=== PATIENT | female | born 1985 | race Caucasian/White ===

== ENCOUNTER 2016-05-25 05:55 | Day surgery (SDC) | payer OTHER ==
[2016-05-18 08:47] LABS: APPEARANCE,URINE CLEAR; BILIRUBIN,URINE NEGATIVE (NEGATIVE); GLUCOSE, URINE NEGATIVE (NEGATIVE); KETONES,URINE NEGATIVE (NEGATIVE); LEUKOCYTE ESTERASE,URINE NEGATIVE (NEGATIVE); NITRITE,URINE NEGATIVE (NEGATIVE); PROTEIN,URINE NEGATIVE (NEGATIVE); URINE SPECIFIC GRAVITY 1.003; UROBILINOGEN,URINE NEGATIVE mg/dL (<2.0)
[2016-05-18 09:15] LABS: ABSOLUTE BASOPHILS # (AUTO) 0.1 10^3/uL (0.0-0.2); ABSOLUTE EOSINOPHILS # (AUTO) 0.1 10^3/uL (0.0-0.6); ABSOLUTE LYMPHOCYTES (AUTO) 1.4 10^3/uL (0.5-4.7); ABSOLUTE MONOCYTES (AUTO) 0.5 10^3/uL (0.1-1.4); ABSOLUTE NEUT (AUTO) 3.2 10^3/uL (1.7-8.2); BASOPHILS % (AUTO) 1.2 % (0-2); EOSINOPHILS % (AUTO) 1.2 % (0-6); HEMATOCRIT 42.8 % (36.0-47.0); HEMOGLOBIN 14.6 g/dL (12.0-15.5); LYMPHOCYTES % (AUTO) 26.3 % (13-45); MEAN CORPUSCULAR HEMOGLOBIN 29.1 pg (27.0-33.4); MEAN CORPUSCULAR HGB CONC 34.2 g/dL (32.0-36.0); MEAN CORPUSCULAR VOLUME 85 fl (80-97); MONOCYTES % (AUTO) 9.4 % (3-13); RED BLOOD COUNT 5.02 10^6/uL (3.72-5.28); RED CELL DISTRIBUTION WIDTH 13.5 % (11.5-14.0); SEGMENTED NEUTROPHILS % (AUTO) 61.9 % (42-78); WHITE BLOOD COUNT 5.2 10^3/uL (4.0-10.5)
[2016-05-18 09:39] LABS: ANION GAP 15 (5-19); BLOOD UREA NITROGEN 11 mg/dL (7-20); CALCIUM 9.9 mg/dL (8.4-10.2); CARBON DIOXIDE 22 mmol/L (22-30); CHLORIDE 106 mmol/L (98-107); CREATININE RESULT 0.72 mg/dL (0.52-1.25); GLUCOSE 93 mg/dL (75-110); POTASSIUM 4.2 mmol/L (3.6-5.0); SODIUM 142.9 mmol/L (137-145)
--- NOTE | 2016-05-18 10:44 | EKG REPORT ---
SEVERITY:- NORMAL ECG - SINUS RHYTHM : Confirmed by: Francisco J Lua MD 18-May-2016 10:43:32
[~2016-05-25 05:55] MED LIST: CEFAZOLIN 2 GM/D5W RTU 2 GM/50 ML RTUPB IV PRN; LACTATED RINGERS 1000 ML IV PRN; LIDOCAINE 0.5% INJ-PF (5 MG/ML) 50 ML SDV SUBCUT PRN
[2016-05-25] MEDS ORDERED: MIDAZOLAM 2 MG/2 ML INJ ONE (07:12)
[2016-05-25] MEDS ORDERED: EPHEDRINE SULFATE INJ 50 MG/1 ML AMPULE ONE (07:12)
[2016-05-25] MEDS ORDERED: FENTANYL CITRATE INJ/PF 250 MCG/5 ML AMPULE ONE (07:12)
[2016-05-25] MEDS ORDERED: ACETAMINOPHEN 100 ML IV ONE (07:13)
[2016-05-25] MEDS ORDERED: MORPHINE SULFATE 10 MG/ML INJ ONE (07:13)
[2016-05-25] MEDS ORDERED: PROPOFOL INJ 200 MG/20 ML VIAL IV ONE (07:13)
[2016-05-25] MEDS ORDERED: DEXMEDETOMIDINE INJ 80 MCG/20 ML VIAL IV ONE (07:13)
[2016-05-25] MEDS ORDERED: FAMOTIDINE INJ/PF 20 MG/2 ML SDV IV ONE ×2 (07:27→08:00)
[2016-05-25] MEDS ORDERED: IBUPROFEN INJ 800 MG/8 ML VIAL IV ONE (07:33)
[2016-05-25] MEDS ORDERED: BUPIVACAINE HCL 0.5 % INJ/PF 30 ML SDV ONE (07:57)
[2016-05-25] MEDS ORDERED: HYDROMORPHONE HCL INJ/PF 2 MG/ML AMPULE ONE (07:59)
[2016-05-25] MEDS ORDERED: SCOPOLAMINE HYDROBROMIDE 1.5 MG PATCH.TD72 TD ONE (08:00)
[2016-05-25] MEDS ORDERED: CEFAZOLIN INJ 1 GM VIAL ONE (09:32)
--- NOTE | 2016-05-25 11:15 | Operative Report ---
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 She underwent distraction bridge plating. After the fracture healed however she had significant radial deviation malunion. She followed up with me in the office at which point we discussed treatment options including observation versus operative intervention which included osteotomy radius malunion with internal fixation. Risks and benefits were explained patient verbalized understanding and consented for the procedure. Procedure In Detail: Patient was seen and evaluated in the preoperative holding area. The LEFT upper extremity was initialized and marked. Patient received 2g of Ancef IV for bacterial prophylaxis. Patient was taken back to the operative room where transferred to the operative table and placed under general anesthesia. Once they were adequately anesthetized a nonsterile tourniquet was placed on the upper extremity. A surgical team debriefing was performed ensuring all instrumentation was available, the surgical procedure was discussed with possible concerns reviewed. The upper extremity was prepped with chlorhexidine and alcohol and draped in a sterile fashion. A timeout was done identifying correct patient, procedure and extremity everyone in attendance agree with this and verbalized no concerns. The extremity was exsanguinated the tourniquet was inflated to 250 mmHg. Patient's previous dorsal incision was utilized. Blunt dissection was performed or significant scarring to the underlying extensor retinaculum. Superficial radial nerve was identified and retracted with the radial skin flap. There was evidence of scarring along the ECRL/ECRB, EPL and EDC. Thus a tenolysis was performed of the extensor tendons. I was able to achieve full passive flexion and extension of the index through the small finger. I then elevated the fourth dorsal compartment to expose the distal radius. The second dorsal compartment was then elevated in a radial direction. Under C-arm fluoroscopy I confirmed the appropriate angle of correction that would be required for my osteotomy and correlated this with my preoperative planning. Once this was determined I used a Acumed narrow dorsal distal radius plate which was pinned into position parallel with the radial articular surface. C- arm fluoroscopy was then obtained which confirmed appropriate placement of my plate. The K wires remained in the plate was removed. The osteotome was used to template my osteotomy site and confirmed with C-arm fluoroscopy once again. I then completed the dorsal osteotomy with a sagittal saw but not extending through the volar cortex and this was completed with an osteotome. During used the oscillating saw saline was utilized to avoid osseous necrosis. I then used the distraction device to pin proximally distally and proximally to the osteotomy obtaining distraction of the osteotomy the appropriate degrees of correction. The plate was then once again slid over the K wires and C-arm fluoroscopy is utilized to confirm appropriate placement of my plate and correction of the radius malunion. Once I confirmed this the plate was secured distally first with a bicortical screw firmly bringing the plate down to bone. I then filled the remaining screws with locking screws and drilled to but not through the far cortices. The previous cortex screw was then switched for the appropriate size locking screw. I then turned my attention to the proximal aspect of the plate. It was secured in the oblong hole with a bicortical screw and fixated additionally proximally with a second bicortical screw. Finally the distal most screw in the proximal fragment was secured with a locking screw. K wires distraction device was removed C-arm fluoroscopy was obtained demonstrating baptism of my radial height, radial inclination and neutral volar tilt. There was -2 ulnar variance and thus I did not feel a ulnar shortening osteotomy was required. Inspection of the DRUJ demonstrated mild bony overgrowth which was resected. Direct visualization of the distal radial ulnar joint demonstrated good cartilage of the ulnar head in the radius there is no evidence of crepitation. I further resected the anterior capsule to obtain full passive pronation and supination. The anterior interosseous nerve was also identified at the interosseous space and 1 cm of the nerve was resected. Within the floor of the fourth dorsal compartment remanence of the posterior interosseous nerve was also identified and a 1 cm segment excised with bipolar cautery. The wound was then copiously irrigated with normal saline. On the back table the OsteoSet bone graft was mixed and then packed into the osteotomy site for about any further stabilization. Patient had full pronation and supination passively without crepitation. No DRUJ instability. Negative Mendosa's test. Wrist flexion of 45 with extension of 40 with 10 of radial/ulnar deviation. Tourniquet was inflated. Any peripheral vascular suture was carefully coagulated with bipolar cautery until the wound was dry. The floor of the fourth and second dorsal compartments was approximated over the plate to protect tendon adherence to the plate with 3-0 Vicryl suture. Subcutaneous tissues were closed with interrupted 4-0 Monocryl and skin was closed a running 3-0 nylon suture. 30 mL of 0.5% Marcaine without epinephrine was injected for postoperative pain control. Wound was dressed with Xeroform 4 x 4's and a sugar tong splint maintaining full supination. Sponge counts, instrument counts, needle counts counts were correct. Patient was then awoken from anesthesia. Transferred from the operating room table to the operating room stretcher. There was no intraoperative complications patient tolerated procedure well stable to PACU. Postoperative plan: Patient will be set up with occupational therapy to begin 5-7 days postoperatively. Patient will be fitted for a thermoplastic splint maintaining forearm supination which she will wear at night and when not performing her home exercise program. Will follow up with me in 2 weeks we will obtain radiographs at that time.
[2016-05-25] MEDS ORDERED: OXYCODONE-ACETAMINOPHEN 5-325 MG TABLET PO PRN (11:16)
[2016-05-25] MEDS ORDERED: HYDROMORPHONE HCL INJ/PF 2 MG/ML AMPULE IV PRN (11:16)
[2016-05-25] MEDS ORDERED: KETOROLAC TROMETHAMINE INJ/PF 30 MG/1 ML SDV IV PRN (11:16)
[2016-05-25] MEDS ORDERED: ONDANSETRON HCL INJ/PF 4 MG/2 ML SDV IV PRN ×2 (11:16→11:25)
--- NOTE | 2016-05-25 11:20 | PDOC DISCHARGE SUMMARY ---
Discharge Summary (SDC) - Discharge Final Diagnosis: Left Distal Radius Malunion Date of Surgery: 05/25/16 Discharge Date: 05/25/16 Condition: Fair Treatment or Instructions: Schedule Follow Up w/ Dr. Adarsh Roberts @ [facility] for Surgery to be seen in 10-14 days or as scheduled [place]: [place]: [place]: Keep splint clean/dry/intact. Ice and elevate May begin finger range of motion attempting to make full fist. Stool softener of choice when on pain medication. Prescriptions: Ibuprofen 800 mg PO Q8 PRN #30 tablet PRN Reason: Ondansetron HCl [Zofran 4 mg Tablet] 1 tab PO Q6 PRN #20 tablet PRN Reason: Oxycodone HCl/Acetaminophen [Percocet 7.5-325 Mg Tablet] 1 each PO Q6 PRN #40 tablet PRN Reason: Discharge Diet: As Tolerated
[2016-05-25] MEDS ORDERED: MEPERIDINE HCL/PF INJ 25 MG/1 ML DISP.SYRIN IV PRN (11:25)
[2016-05-25] MEDS ORDERED: FENTANYL CITRATE INJ/PF 100 MCG/2 ML AMPUL IV PRN ×3 (11:25)
[2016-05-25] MEDS ORDERED: DIPHENHYDRAMINE HCL 50 MG/ML VIAL IV PRN (11:25)
[2016-05-25] MEDS ORDERED: PROMETHAZINE HCL INJ 25 MG/1 ML VIAL IV PRN ×2 (11:25)
[2016-05-25] MEDS: FENTANYL CITRATE INJ/PF 100 MCG/2 ML AMPUL ONE ×2 (11:37→11:47)
[2016-05-25] MEDS ORDERED: LIDOCAINE 2% INJ-PF (20 MG/ML) 10 ML AMPUL ONE (14:30)
[2016-05-25] MEDS ORDERED: METOCLOPRAMIDE HCL INJ/PF 10 MG/2 ML SDV ONE (14:30)
[2016-05-25] MEDS ORDERED: ONDANSETRON HCL INJ/PF 4 MG/2 ML SDV ONE (14:30)
[2016-05-25] MEDS ORDERED: ROCURONIUM BROMIDE INJ 50 MG/5 ML VIAL IV ONE (14:30)
[2016-05-25] MEDS ORDERED: SUCCINYLCHOLINE CHLORIDE INJ 200 MG/10 ML VIAL ONE (14:30)
[2016-05-25] MEDS ORDERED: DEXAMETHASONE SOD PHOSPHATE INJ 4 MG/1 ML VIAL ONE (14:30)
[2016-05-25 14:55] VITALS: BP 135/87
== END 2016-05-25 14:30 | disposition home or self-care (01) ==
LOC: OROUT 05:55
PROVIDERS: ATTEND Orthopaedic Surgery
PROC: 0PHJ04Z Insertion of Internal Fixation Device into Left Radius, Open Approach (ICD-10-PCS; 2016-05-25)
PROC: 0LN60ZZ Release Left Lower Arm and Wrist Tendon, Open Approach (ICD-10-PCS; 2016-05-25)
PROC: 01B60ZZ Excision of Radial Nerve, Open Approach (ICD-10-PCS; 2016-05-25)
PROC: 0PBJ0ZZ Excision of Left Radius, Open Approach (ICD-10-PCS; principal; 2016-05-25 08:00)
DX: S52.572P Other intraarticular fracture of lower end of left radius, subsequent encounter for closed fracture with malunion (principal); X58.XXXD Exposure to other specified factors, subsequent encounter; M65.832 Other synovitis and tenosynovitis, left forearm; M25.532 Pain in left wrist; E03.9 Hypothyroidism, unspecified; F41.9 Anxiety disorder, unspecified; F32.9 Major depressive disorder, single episode, unspecified; Z88.5 Allergy status to narcotic agent; Z87.820 Personal history of traumatic brain injury
CPT/HCPCS: 93005; 36415 ×2; 84703; 85025; 81025; 80048; 81001; 71010; 73110; 93010; 25350; 25295; 64772; C1713 ×2; J2250; J3490 ×3; J1100; J3010 ×2; J2765; J1170; J0330; J2405; J2704; S0028; J0690; J0131; J1741; 01830; J2270

== ENCOUNTER 2016-07-26 20:19 | Emergency (ER) | payer OTHER ==
--- NOTE | 2016-07-27 01:06 | RADIOLOGY REPORT (SQ) ---
EXAM DESCRIPTION: WRIST LEFT 3 VIEWS COMPLETED DATE/TIME: 07/27/2016 12:49 am REASON FOR STUDY: pain/injury COMPARISON: 05/25/2016, 12/10/2015. The NUMBER OF VIEWS: Three views. TECHNIQUE: AP, lateral, and oblique radiographic images acquired of the left wrist. LIMITATIONS: None. FINDINGS: MINERALIZATION: Moderate bony demineralization. BONES: Near complete, partial, nondisplaced transverse metallic fracture of a metallic osteotomy plat e and screw fixation of the left distal radial fracture site with interval partial healing. Chronic fracture of the left ulnar styloid base. Moderate radiocarpal osteoarthritis/chondrocalcinosis. SOFT TISSUES: No soft tissue swelling. No foreign body. OTHER: No other significant finding. IMPRESSION: Fracture of a distal left radial osteotomy plate. TECHNICAL DOCUMENTATION: JOB ID: [id number] [employer]- All Rights Reserved
--- NOTE | 2016-07-27 01:14 | ER Document Report ---
ED General - General Chief Complaint: Arm Pain Stated Complaint: LEFT ARM PAIN Time Seen by Provider: 07/27/16 01:09 Notes: Patient is a 31-year-old female who sustained a left distal radius fracture in May 2016 status post fixation with an internal plate who presents with acute onset of worsening of the left wrist pain. States that she was in the shower and turned the shower handle with her left hand. States she heard a pop followed by an immediate onset of severe, constant, stabbing pain to the left wrist. Nothing improves or worsens the pain. States that prior to this episode she had no longer had any pain to the affected area. Denies any additional injuries. Denies any associated weakness, numbness, or discoloration of the hand. She has not spoken to her orthopedic surgeon regarding today's episode. TRAVEL OUTSIDE OF THE [place] IN LAST 30 DAYS: No - Related Data Allergies/Adverse Reactions: morphine [Morphine] Allergy (Mild, Verified 05/06/16 15:17) ITCHY, TURNS RED Past Medical History - General Information source: Patient - Social History Smoking Status: Never Smoker Frequency of alcohol use: None Drug Abuse: None Lives with: Spouse/Significant other Family History: Reviewed & Not Pertinent Patient has suicidal ideation: No Patient has homicidal ideation: No - Past Medical History Cardiac Medical History: Denies: Hx Coronary Artery Disease, Hx Heart Attack, Hx Hypertension Pulmonary Medical History: Denies: Hx Asthma, Hx Bronchitis, Hx COPD, Hx Pneumonia Neurological Medical History: Denies: Hx Cerebrovascular Accident, Hx Seizures Endocrine Medical History: Reports: Hx Hypothyroidism Renal/ Medical History: Denies: Hx Peritoneal Dialysis Musculoskeltal Medical History: Denies Hx Arthritis Psychiatric Medical History: Reports: Hx Anxiety, Hx Depression Past Surgical History: Reports: Hx Orthopedic Surgery - L arm 2016, Hx Tubal Ligation - 12/19 and 09/19 - Immunizations Immunizations up to date: Yes Hx Diphtheria, Pertussis, Tetanus Vaccination: Yes Review of Systems - Review of Systems Notes: Constitutional: Negative for fever. HENT: Negative for sore throat. Eyes: Negative for visual changes. Cardiovascular: Negative for chest pain. Respiratory: Negative for shortness of breath. Gastrointestinal: Negative for abdominal pain, vomiting or diarrhea. Genitourinary: Negative for dysuria. Musculoskeletal: Positive for left wrist pain Skin: Negative for rash. Neurological: Negative for headaches, weakness or numbness. 10 point ROS negative except as marked above and in HPI. Physical Exam - Vital signs Vitals: Temp Pulse Resp BP Pulse Ox 98.3 F 69 20 139/84 H 98 07/26/16 21:54 07/26/16 21:54 07/26/16 21:54 07/26/16 21:54 07/26/16 21:54 Interpretation: Normal Notes: PHYSICAL EXAMINATION: GENERAL: Well-appearing, well-nourished and in no acute distress. HEAD: Atraumatic, normocephalic. EYES: sclera anicteric, conjunctiva are normal. ENT: Moist mucous membranes. NECK: Normal range of motion LUNGS: Normal work of breathing HEART: 2+ radial pulses bilaterally EXTREMITIES: Severe pain on minimal palpation of the left wrist. There is an apparent deformity that the patient states is unchanged from prior to the left wrist. NEUROLOGICAL: RMU motor and sensory distribution intact bilaterally. PSYCH: Normal mood, normal affect. SKIN: Warm, Dry, normal turgor, no rashes or lesions noted. Course - Re-evaluation Re-evalutation: 07/27/16 01:13 Patient has an acute fracture of the osteotomy plate of her left radius. Significant pain on palpation in the area although she is neurovascularly intact. I discussed this case with Dr. Marshall who is asked the patient placed in a sugar tong and will follow up in the office. Patient has been given a small amount of pain medication as she has acutely worsened pain at this time. At this time will discharge with return precautions and follow-up recommendations. Verbal discharge instructions given a the bedside and opportunity for questions given. Medication warnings reviewed. Patient is in agreement with this plan and has verbalized understanding of return precautions and the need for primary care follow-up in the next 24-72 hours. - Vital Signs Vital signs: Temp Pulse Resp BP Pulse Ox 97.9 F 66 18 135/85 H 100 07/27/16 02:36 07/27/16 02:36 07/27/16 02:36 07/27/16 02:36 07/27/16 02:36 - Diagnostic Test Radiology reviewed: Image reviewed, Reports reviewed Discharge - Discharge Clinical Impression: Osteotomy plate fracture, Left wrist pain Condition: Good Disposition: HOME, SELF-CARE Additional Instructions: You need to follow-up with Dr. Marshall in the next 3-5 days. You have had a fracture of the hardware in your left wrist. Take ibuprofen 600 mg every 6 hours as needed for pain. Take the Percocet that you were sent home with for pain that is not controlled by ibuprofen. Keep the splint in place except when you are showering until you follow-up with Dr. Marshall. Prescriptions: Oxycodone HCl/Acetaminophen [Percocet 5-325 mg Tablet] 1 - 2 tab PO Q4H PRN #15 tablet PRN Reason: Referrals: ELIZABET ELAINE MD [Primary Care Provider] - Follow up as needed OLIVIA MARSHALL DO [ACTIVE STAFF] - Follow up in 3-5 days
[2016-07-27] MEDS ORDERED: HYDROCODONE/ACETAMINOPHEN 5-325 MG 6 TAB/DSPK PO PRN (01:24)
[2016-07-27] MEDS ORDERED: OXYCODONE HCL IR 5 MG TABLET PO ONE (01:25)
[2016-07-27 02:46] VITALS: BP 135/85
== END 2016-07-27 02:46 | disposition home or self-care (01) ==
LOC: ER 20:19
PROC: 2W3DX1Z Immobilization of Left Lower Arm using Splint (ICD-10-PCS; principal; 2016-07-26)
DX: S52.92XA Unspecified fracture of left forearm, initial encounter for closed fracture (principal); M79.602 Pain in left arm; M25.532 Pain in left wrist; X58.XXXA Exposure to other specified factors, initial encounter
CPT/HCPCS: 99283

== ENCOUNTER 2016-08-17 11:15 | Day surgery (SDC) | payer OTHER ==
[~2016-08-17 11:15] MED LIST changes: -LACTATED RINGERS 1000 ML IV PRN; -LIDOCAINE 0.5% INJ-PF (5 MG/ML) 50 ML SDV SUBCUT PRN
[2016-08-17 11:40] LABS: APPEARANCE,URINE CLEAR; BILIRUBIN,URINE NEGATIVE (NEGATIVE); GLUCOSE, URINE NEGATIVE (NEGATIVE); KETONES,URINE NEGATIVE (NEGATIVE); LEUKOCYTE ESTERASE,URINE NEGATIVE (NEGATIVE); NITRITE,URINE NEGATIVE (NEGATIVE); PROTEIN,URINE NEGATIVE (NEGATIVE); URINE SPECIFIC GRAVITY 1.014; UROBILINOGEN,URINE NEGATIVE mg/dL (<2.0)
[2016-08-17 12:14] LABS: HEMATOCRIT 40.1 % (36.0-47.0); HEMOGLOBIN 13.5 g/dL (12.0-15.5); HGB HCT DIFFERENCE 0.4; MEAN CORPUSCULAR HEMOGLOBIN 29.2 pg (27.0-33.4); MEAN CORPUSCULAR HGB CONC 33.6 g/dL (32.0-36.0); MEAN CORPUSCULAR VOLUME 87 fl (80-97); RED BLOOD COUNT 4.61 10^6/uL (3.72-5.28); RED CELL DISTRIBUTION WIDTH 14.1 % (11.5-14.0); WHITE BLOOD COUNT 5.4 10^3/uL (4.0-10.5)
[2016-08-17] MEDS ORDERED: SCOPOLAMINE HYDROBROMIDE 1.5 MG PATCH.TD72 ONE (12:16)
[2016-08-17] MEDS ORDERED: RINGERS SOLUTION,LACTATED 1,000 ML IV PRN (12:16)
[2016-08-17] MEDS ORDERED: FAMOTIDINE INJ/PF 20 MG/2 ML SDV IV ONE ×2 (12:16→12:45)
[2016-08-17] MEDS ORDERED: METOCLOPRAMIDE HCL INJ/PF 10 MG/2 ML SDV ONE (12:16)
[2016-08-17 12:30] LABS: ANION GAP 11 (5-19); BLOOD UREA NITROGEN 16 mg/dL (7-20); CALCIUM 9.1 mg/dL (8.4-10.2); CARBON DIOXIDE 22 mmol/L (22-30); CHLORIDE 109 mmol/L (98-107); CREATININE RESULT 0.73 mg/dL (0.52-1.25); GLUCOSE 79 mg/dL (75-110); POTASSIUM 3.9 mmol/L (3.6-5.0); SODIUM 141.5 mmol/L (137-145)
[2016-08-17] MEDS ORDERED: METOCLOPRAMIDE HCL INJ/PF 10 MG/2 ML SDV IV ONE (12:45)
[2016-08-17] MEDS ORDERED: SCOPOLAMINE HYDROBROMIDE 1.5 MG PATCH.TD72 TD ONE (12:45)
[2016-08-17] MEDS ORDERED: BUPIVACAINE HCL 0.5 % INJ/PF 30 ML SDV ONE (12:52)
[2016-08-17] MEDS ORDERED: MIDAZOLAM 2 MG/2 ML INJ ONE (12:53)
[2016-08-17] MEDS ORDERED: FENTANYL CITRATE INJ/PF 250 MCG/5 ML AMPULE ONE ×2 (12:53→14:43)
[2016-08-17] MEDS ORDERED: DEXAMETHASONE SOD PHOSPHATE INJ 4 MG/1 ML VIAL ONE (12:54)
[2016-08-17] MEDS ORDERED: ONDANSETRON HCL INJ/PF 4 MG/2 ML SDV ONE (12:54)
[2016-08-17] MEDS ORDERED: ACETAMINOPHEN 100 ML IV ONE (12:54)
[2016-08-17] MEDS ORDERED: PROPOFOL INJ 200 MG/20 ML VIAL IV ONE (12:54)
[2016-08-17] MEDS ORDERED: MEPERIDINE HCL/PF INJ 25 MG/1 ML DISP.SYRIN ONE (14:01)
--- NOTE | 2016-08-17 16:35 | RADIOLOGY REPORT (SQ) ---
EXAM DESCRIPTION: NO CHG FLUORO; WRIST LEFT 2 VIEWS COMPLETED DATE/TIME: 08/17/2016 4:25 pm REASON FOR STUDY: ORIF LT WRIST REVISION S52.502P UNSP FX THE LOWER END LEFT RAD, SUBS FOR CLOS FX W T85.698A [facility] COMPL OF INTERNAL PROSTH DEV/GRFT, INIT COMPARISON: 07/27/2016. FLUOROSCOPY TIME: 59 seconds. 3 images saved to PACS. TECHNIQUE: Intra-operative images acquired during surgical procedure to evaluate progress. NUMBER OF IMAGES: 3 images. LIMITATIONS: None. FINDINGS: Images of the wrist with old traumatic findings and hardware. IMPRESSION: IMAGE(S) OBTAINED DURING PROCEDURE. COMMENT: Quality ID [id number]: Final reports for procedures using fluoroscopy that document radiation exp osure indices, or exposure time and number of fluorographic images (if radiation exposure indices are not available) Please consult full operative report of the attending physician for description of the procedure. TECHNICAL DOCUMENTATION: JOB ID: [id number] [employer]- All Rights Reserved
--- NOTE | 2016-08-17 16:35 | RADIOLOGY REPORT (SQ) ---
EXAM DESCRIPTION: NO CHG FLUORO; WRIST LEFT 2 VIEWS COMPLETED DATE/TIME: 08/17/2016 4:25 pm REASON FOR STUDY: ORIF LT WRIST REVISION S52.502P UNSP FX THE LOWER END LEFT RAD, SUBS FOR CLOS FX W T85.698A [facility] COMPL OF INTERNAL PROSTH DEV/GRFT, INIT COMPARISON: 07/27/2016. FLUOROSCOPY TIME: 59 seconds. 3 images saved to PACS. TECHNIQUE: Intra-operative images acquired during surgical procedure to evaluate progress. NUMBER OF IMAGES: 3 images. LIMITATIONS: None. FINDINGS: Images of the wrist with old traumatic findings and hardware. IMPRESSION: IMAGE(S) OBTAINED DURING PROCEDURE. COMMENT: Quality ID [id number]: Final reports for procedures using fluoroscopy that document radiation exp osure indices, or exposure time and number of fluorographic images (if radiation exposure indices are not available) Please consult full operative report of the attending physician for description of the procedure. TECHNICAL DOCUMENTATION: JOB ID: [id number] [employer]- All Rights Reserved
--- NOTE | 2016-08-17 16:43 | PDOC DISCHARGE SUMMARY ---
Discharge Summary (SDC) - Discharge Final Diagnosis: Right distal radius malunion refracture Date of Surgery: 08/17/16 Discharge Date: 08/17/16 Condition: Good Treatment or Instructions: Schedule Follow Up w/ Dr. Adarsh Roberts @ [facility] for Surgery to be seen in 10-14 days or as scheduled [place]: [place]: [place]: Keep splint clean/dry/intact. Ice and elevate May begin finger range of motion attempting to make full fist. Stool softener of choice when on pain medication. Prescriptions: Oxycodone HCl/Acetaminophen [Percocet 7.5-325 mg Tablet] 1 - 2 tab PO ASDIR PRN #45 tab PRN Reason: Discharge Diet: As Tolerated Respiratory Treatments at Home: Deep Breathing/Coughing Discharge Activity: No Lifting Over 10 Pounds, No Lifting/Push/Pulling Report the Following to Your Physician Immediately: Fever over 101 Degrees, Unusual Bleeding, Redness, Swelling, Warmth, Increased Soreness
[2016-08-17] MEDS ORDERED: ONDANSETRON HCL INJ/PF 4 MG/2 ML SDV IV PRN (16:56)
[2016-08-17] MEDS ORDERED: OXYCODONE-ACETAMINOPHEN 5-325 MG TABLET PO PRN (16:56)
[2016-08-17] MEDS ORDERED: HYDROMORPHONE HCL INJ/PF 2 MG/ML AMPULE IV PRN (16:56)
--- NOTE | 2016-08-17 16:56 | Operative Report ---
Operative Report DATE OF SURGERY: 08/17/16 PREOPERATIVE DIAGNOSIS: Refracture Left Distal Radius Malunion POSTOPERATIVE DIAGNOSIS: Same OPERATION: Removal Hardware Right Wrist. Revision ORIF Right Distal Radius w/ Iliac Crest Bone Grafting SURGEON: OLIVIA MARSHALL ANESTHESIA: GA COMPLICATIONS: radial artery injury ESTIMATED BLOOD LOSS: Minimal PROCEDURE: Indication for above procedure: 31-year-old female who sustained a severe right distal radius fracture ultimately underwent operative intervention including distraction bridge plating. Upon removal of the distraction baseplate patient continued to have a bridge plate patient had persistent malunion at that point we discussed treatment options and the joint decision was made to proceed with distal radius osteotomy. Patient initially did well after the surgical procedure but recently she felt a pop in her wrist which resulted in hardware breakage of the distal radius plate upon follow-up we discussed treatment options the decision was made to proceed with revision open reduction internal fixation with iliac crest bone grafting. Procedure In Detail: Patient was seen and evaluated in the preoperative holding area. The RIGHT upper extremity was initialized and marked. Patient received 2g of Ancef IV for bacterial prophylaxis. Patient was taken back to the operative room where transferred to the operative table and placed under general anesthesia. Once they were adequately anesthetized a nonsterile tourniquet was placed on the upper extremity. A surgical team debriefing was performed ensuring all instrumentation was available, the surgical procedure was discussed with possible concerns reviewed. The upper extremity was prepped with chlorhexidine and alcohol and draped in a sterile fashion. A timeout was done identifying correct patient, procedure and extremity everyone in attendance agree with this and verbalized no concerns. The extremity was exsanguinated the tourniquet was inflated to 250 mmHg. Patient's previous dorsal skin incision was made. Blunt dissection was performed there was significant adhesions to the underlying skin and associated deep structures including retinaculum of the fourth dorsal and second dorsal compartment. The EPL tendon was identified and tenolysis performed. Carefully elevated the fourth dorsal compartment and second dorsal compartment exposing the Acumed distal radius plate. The proximal distal screws were then removed the plate was broken at the osteotomy site and it was notable motion at the osteotomy site. Once the plate was removed the screw holes were carefully curetted. I then removed the previous bone graft from the osteotomy site this was debrided back to normal-appearing good bleeding cancellus bone. Given the failure mechanism of the force I felt patient would be better served with a volar distal radius plate I then turned my attention to fixation. Skin incision was made over the FCR tendon. Blunt dissection was performed the median nerve and palmar cutaneous branch median nerve were identified and protected. Of note patient had evidence of a bifid median nerve with persistent median artery. The FCR sheath was opened and the FCR was retracted in a ulnar direction. The radial artery was identified and retracted radially. The pronator quadratus was then split and elevated to expose the previous osteotomy site and the volar cortex of the radius. The Acumed standard 4 hole plate was chosen and pinned into position. C arm fluoroscopy was obtained confirming appropriate placement of the plate distally. Once I assured appropriate placement of the plate distally I proceeded with fixation. It was fixated distally with a cortex screw to bring the plate down to bone to avoid postoperative flexor tendon irritation. I then completed fixation filling in the remaining holes with the appropriate sized locking screws drilling to but not through the far cortex to avoid iatrogenic tendon irritation. I then completed fixation with my 2 styloid screws and switched out my previous cortex screw with the appropriate size locking screw. Once this was complete I turned my attention to re-creating the appropriate distal radius alignment. I carefully elevated the pronator quadratus off the ulnar aspect of the distal radius to provide more mobility to my most proximal fragment. Once stability of the fragment was obtained a lamina sponge buffer was placed dorsally successfully retreating my radial height and inclination. C-arm fluoroscopy was obtained confirming appropriate placement of the plate proximally. I then placed a bicortical screw into the dynamic hole and repeat radiographs once again obtained demonstrating baptist of radial height, inclination and volar tilt. I then completed fixation proximally with 3 additional bicortical screw and finally a locking screw. C-arm fluoroscopy was obtained demonstrating appropriate placement of my hardware there is no evidence of intra-articular screw penetration on lateral and 20 elevated lateral. There was a 1.5 cm defect dorsally and thus I decided to proceed with harvesting iliac bone graft. The tourniquet was deflated however there was a small defect in the radial artery possibly tear from underlying scar tissue. This was repaired with three interrupted 8-0 nylon sutures under loupe magnification. This successfully stopped the bleeding. Patient had good pulses proximal and distal to the repair site in good flow through the small repair. Any peripheral vasculature then coagulated bipolar cautery. A longitudinal skin incision was made 2 cm posterior to the ASIS. Blunt dissection was performed and the fascia was incised in line with the iliac crest. Then able to isolate the iliac crest. I measured my defect posteriorly prior to meeting with harvesting using the parameters a small bicortical graft was removed. Extra cancellus bone was then removed from the defect site. The wound was then copiously irrigated with normal saline. A Surgifoam was placed into the defect. A peripheral vasculature was coagulated with cautery. The deep fascia was closed with 0 Vicryl suture. Subcutaneous tissues closed with interrupted 3-0 Monocryl suture. Skin was closed with 4-0 Monocryl reinforced with Dermabond and Steri-Strips. 10 cc of 0.5% Marcaine with epinephrine was injected for postoperative pain control. Once again the volar and dorsal wounds were irrigated with normal saline. First my cortical graft was placed in the defect posteriorly. Any remaining defects were then filled with cancellus bone graft. I avoid significant cancellus bone grafting ulnarly to avoid DRUJ encroachment. The dorsal wound was closed with subcutaneous interrupted 3-0 Monocryl in a running 4-0 nylon suture. Volarly the subcutaneous tissues were closed with interrupted 3-0 Vicryl suture. Skin was closed with interrupted 4-0 Monocryl reinforced with Dermabond and Steri-Strips. 20 cc of 0.5% Marcaine with epinephrine was injected for postoperative pain control. Patient was placed in a thumb spica splint volarly maintaining the IP and MP joint in extension. Patient had good capillary refill and skin turgor throughout all digits. Sponge counts, instrument counts, needle counts counts were correct. Patient was then awoken from anesthesia. Transferred from the operating room table to the operating room stretcher. Patient tolerated procedure well with stable to PACU. Postoperative plan: Patient will follow-up in the office in 10-14 days at which point we will obtain radiographs to transition the patient into a cast until consolidation of the osteotomy site is noted.
[2016-08-17] MEDS: FENTANYL CITRATE INJ/PF 100 MCG/2 ML AMPUL ONE ×2 (17:00→17:08)
[2016-08-17] MEDS: HYDROMORPHONE HCL INJ/PF 2 MG/ML AMPULE ONE ×3 (17:35→17:55)
[2016-08-17] MEDS ORDERED: IBUPROFEN INJ 800 MG/8 ML VIAL IV ONE (18:19)
[2016-08-17 20:45] VITALS: BP 137/87
== END 2016-08-17 20:45 | disposition home or self-care (01) ==
LOC: OROUT 11:15
PROVIDERS: ATTEND Orthopaedic Surgery
PROC: 0QB30ZZ Excision of Left Pelvic Bone, Open Approach (ICD-10-PCS; 2016-08-17)
PROC: 0PUH07Z Supplement Right Radius with Autologous Tissue Substitute, Open Approach (ICD-10-PCS; 2016-08-17)
PROC: 0PPH04Z Removal of Internal Fixation Device from Right Radius, Open Approach (ICD-10-PCS; principal; 2016-08-17 13:15)
PROC: 0PSJ04Z Reposition Left Radius with Internal Fixation Device, Open Approach (ICD-10-PCS; 2016-08-17 13:15)
DX: S52.502P Unspecified fracture of the lower end of left radius, subsequent encounter for closed fracture with malunion (principal); X58.XXXD Exposure to other specified factors, subsequent encounter; T85.698A Other mechanical complication of other specified internal prosthetic devices, implants and grafts, initial encounter; E03.9 Hypothyroidism, unspecified; F32.9 Major depressive disorder, single episode, unspecified; F41.9 Anxiety disorder, unspecified; Z79.899 Other long term (current) drug therapy; Z88.5 Allergy status to narcotic agent; Z87.820 Personal history of traumatic brain injury
CPT/HCPCS: 20680; 25607; 20900; 36415; 85027; 81025; 80048; 81001; 73100; C1713 ×2; J2250; J1100; J3010 ×2; J2765; J1170; J2405; J2704; S0028; J0690; J0131; J1741; 01830; J2175

== ENCOUNTER 2016-10-14 16:27 | Emergency (ER) | payer OTHER ==
--- NOTE | 2016-10-14 16:55 | ER Document Report ---
ED Hand/Wrist Injury - General Chief Complaint: Wrist Pain Stated Complaint: LEFT ARM PAIN Time Seen by Provider: 10/14/16 16:52 Mode of Arrival: Ambulatory Information source: Patient Notes: Patient states that she has left wrist pain. She states she has had multiple surgeries on this arm and was using it to pull something several hours ago which began have pain. She states she wants to be sure that she has not done any further damage to her wrist. This pain is moderate. It is constant. It is an aching sensation. It radiates up her left arm. It is worse with movement and better with rest. TRAVEL OUTSIDE OF THE [place] IN LAST 30 DAYS: No - Related Data Allergies/Adverse Reactions: morphine [Morphine] Allergy (Mild, Verified 05/06/16 15:17) ITCHY, TURNS RED Opioids - Morphine Analogues Allergy (Verified 10/14/16 16:53) Hives Past Medical History - General Information source: Patient - Social History Smoking Status: Never Smoker Frequency of alcohol use: None Drug Abuse: None Family History: Reviewed & Not Pertinent Patient has suicidal ideation: No Patient has homicidal ideation: No - Past Medical History Cardiac Medical History: Denies: Hx Coronary Artery Disease, Hx Heart Attack, Hx Hypertension Pulmonary Medical History: Denies: Hx Asthma, Hx Bronchitis, Hx COPD, Hx Pneumonia Neurological Medical History: Denies: Hx Cerebrovascular Accident, Hx Seizures Endocrine Medical History: Reports: Hx Hypothyroidism Renal/ Medical History: Denies: Hx Peritoneal Dialysis Musculoskeltal Medical History: Denies Hx Arthritis Psychiatric Medical History: Reports: Hx Anxiety, Hx Depression Past Surgical History: Reports: Hx Orthopedic Surgery - L arm 2016, Hx Tubal Ligation - Immunizations Immunizations up to date: Yes Hx Diphtheria, Pertussis, Tetanus Vaccination: Yes Review of Systems - Review of Systems Constitutional: denies: Chills, Fever Cardiovascular: denies: Chest pain, Palpitations Respiratory: denies: Cough, Short of breath Gastrointestinal: denies: Abdominal pain, Vomiting -: Yes All other systems reviewed and negative Physical Exam - Vital signs Vitals: Temp Pulse Resp BP Pulse Ox 98.7 F 86 14 130/92 H 98 10/14/16 16:41 10/14/16 16:41 10/14/16 16:41 10/14/16 16:41 10/14/16 16:41 Interpretation: Hypertensive - General General appearance: Appears well, Alert - HEENT Head: Normocephalic, Atraumatic Eyes: Normal Pupils: PERRL - Respiratory Respiratory status: No respiratory distress Chest status: Nontender Breath sounds: Normal Chest palpation: Normal - Cardiovascular Rhythm: Regular Heart sounds: Normal auscultation Murmur: No - Abdominal Inspection: Normal Distension: No distension Bowel sounds: Normal Tenderness: Nontender Organomegaly: No organomegaly - Back Back: Normal, Nontender - Extremities General upper extremity: Tender - Left wrist has previous surgical scars. It is diffusely tender to palpation. There is no swelling or erythema. No warmth. No signs of infection. Patient has a 2+ radial pulse on the left. She also has normal capillary refill of all fingers on the left hand., Normal temperature General lower extremity: Normal inspection, Nontender, Normal color, Normal ROM , Normal temperature, Normal weight bearing. No: Susan's sign - Neurological Neuro grossly intact: Yes Cognition: Normal Orientation: AAOx4 [place] Coma Scale Eye Opening: Spontaneous [place] Coma Scale Verbal: Oriented Su[place] Coma Scale Motor: Obeys Commands Suad Coma Scale Total: 15 Speech: Normal Motor strength normal: LUE, RUE, LLE, RLE Sensory: Normal - Psychological Associated symptoms: Normal affect, Normal mood - Skin Skin Temperature: Warm Skin Moisture: Dry Skin Color: Normal Course - Vital Signs Vital signs: Temp Pulse Resp BP Pulse Ox 98.7 F 86 14 130/92 H 98 10/14/16 16:41 10/14/16 16:41 10/14/16 16:41 10/14/16 16:41 10/14/16 16:41 - Diagnostic Test Radiology reviewed: Image reviewed, Reports reviewed - Patient has a nonunion of the left ulna. I discussed at this radiology. They states it appears chronic. No evidence of new injury. Discharge - Discharge Clinical Impression: Nonunion fracture of left ulna Condition: Stable Disposition: HOME, SELF-CARE Instructions: Arm Pain, Nonspecific ([facility]) Additional Instructions: Please call the orthopedic surgeon, Dr. Radha Rios, as soon as possible to arrange follow-up. Referrals: FLORENCIO GARCIA MD [ACTIVE STAFF] - Follow up as needed
--- NOTE | 2016-10-14 17:29 | RADIOLOGY REPORT (SQ) ---
EXAM DESCRIPTION: WRIST LEFT 3 VIEWS COMPLETED DATE/TIME: 10/14/2016 5:07 pm REASON FOR STUDY: pain COMPARISON: None. NUMBER OF VIEWS: Three views. TECHNIQUE: AP, lateral, and oblique radiographic images acquired of the left wrist. LIMITATIONS: None. FINDINGS: MINERALIZATION: Normal. BONES: Internal fixation of a prior fracture of the distal radius. There is no evidence of osseous u nion. Nonunited ulnar styloid fracture is well. SOFT TISSUES: No soft tissue swelling. No foreign body. OTHER: No other significant finding. IMPRESSION: Nonunion of left radial fracture. Hardware remains in position. TECHNICAL DOCUMENTATION: JOB ID: [id number] [employer]- All Rights Reserved
[2016-10-14 18:32] VITALS: BP 124/87
== END 2016-10-14 18:25 | disposition home or self-care (01) ==
LOC: ER 16:27
DX: S52.292A Other fracture of shaft of left ulna, initial encounter for closed fracture (principal); M25.532 Pain in left wrist; M79.602 Pain in left arm; X58.XXXA Exposure to other specified factors, initial encounter
CPT/HCPCS: 99283

== ENCOUNTER 2016-11-30 18:30 | Emergency (ER) | payer OTHER ==
[2016-11-30] MEDS ORDERED: PREDNISONE 20 MG TABLET PO ONE (19:16)
[2016-11-30] MEDS ORDERED: ALBUTEROL SULFATE 0.083% NEB 2.5 MG/3 ML AMPUL NEB ONE (19:16)
[2016-11-30] MEDS ORDERED: ACETAMINOPHEN 325 MG TABLET PO ONE (19:18)
--- NOTE | 2016-11-30 19:20 | ER Document Report ---
HPI - HPI Patient complains to provider of: left wrist pain Onset: This morning Onset/Duration: Sudden Quality of pain: Throbbing Severity: Moderate Pain Level: 3 Context: Patient states she was at the gym this morning and was using her left arm to hold a pin on a piece of equipment when she suddenly felt sharp pain. Patient broke the wrist in August and had surgery. Patient is concerned that the plate may have come loose with today's injury. Associated Symptoms: None Exacerbated by: Movement Relieved by: Denies Similar symptoms previously: Yes Recently seen / treated by doctor: No - ROS ROS below otherwise negative: Yes Systems Reviewed and Negative: Yes All other systems reviewed and negative - CONSTITUTIONAL Constitutional: DENIES: Fever - EENT EENT: DENIES: Congestion - NEURO Neurology: DENIES: Headache - CARDIOVASCULAR Cardiovascular: DENIES: Chest pain - RESPIRATORY Respiratory: DENIES: Trouble Breathing - GASTROINTESTINAL Gastrointestinal: DENIES: Abdominal Pain - URINARY Urinary: DENIES: Dysuria - REPRODUCTIVE Reproductive: DENIES: : - MUSCULOSKELETAL Musculoskeletal: REPORTS: Extremity pain - Left wrist - DERM Skin Color: Normal Past Medical History - General Information source: Patient - Social History Smoking Status: Never Smoker Frequency of alcohol use: None Drug Abuse: None Lives with: Family Family History: Reviewed & Not Pertinent Endocrine Medical History: Reports: Hx Hypothyroidism Psychiatric Medical History: Reports: Hx Anxiety, Hx Depression Past Surgical History: Reports: Hx Orthopedic Surgery - L arm 2016, Hx Tubal Ligation - Immunizations Immunizations up to date: Yes Hx Diphtheria, Pertussis, Tetanus Vaccination: Yes Vertical Provider Document - CONSTITUTIONAL Agree With Documented VS: Yes Exam Limitations: No Limitations General Appearance: WD/WN, No Apparent Distress - INFECTION CONTROL TRAVEL OUTSIDE OF THE [place] IN LAST 30 DAYS: No - HEENT HEENT: Atraumatic, Normocephalic - RESPIRATORY Respiratory: Breath Sounds Normal, No Respiratory Distress O2 Sat by Pulse Oximetry: 98 Notes: Patient has inspiratory and expiratory wheezing. Deep breathing causes coughing to begin. - CARDIOVASCULAR Cardiovascular: Regular Rate, Regular Rhythm - MUSCULOSKELETAL/EXTREMETIES Musculoskeletal/Extremeties: MAEW, Tender - Left wrist over surgical site. 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., No Edema - NEURO Level of Consciousness: Awake, Alert, Appropriate - DERM Integumentary: Warm, Dry Course - Re-evaluation Re-evalutation: 11/30/16 19:56 X-rays showed no acute changes from previous x-ray in October and this was discussed with the patient - Vital Signs Vital signs: Temp Pulse Resp BP Pulse Ox 98.5 F 69 130/81 H 98 11/30/16 18:42 11/30/16 18:42 11/30/16 18:42 11/30/16 18:42 Discharge - Discharge Clinical Impression: Left wrist pain Condition: Good Disposition: HOME, SELF-CARE Additional Instructions: Continue to wear wrist splint Ibuprofen as needed for pain no heavy lifting using the Left wrist Follow-up with your orthopedic for recheck if not better in 1 week Return as needed
--- NOTE | 2016-11-30 19:45 | RADIOLOGY REPORT (SQ) ---
EXAM DESCRIPTION: WRIST LEFT 3 VIEWS COMPLETED DATE/TIME: 11/30/2016 7:34 pm REASON FOR STUDY: PAIN COMPARISON: 10/14/2016 NUMBER OF VIEWS: Three views. TECHNIQUE: AP, lateral, and oblique radiographic images acquired of the left wrist. LIMITATIONS: None. FINDINGS: MINERALIZATION: Normal. BONES: No acute fracture dislocation. Orthopedic plate is again identified transfixing the distal ra dius. There is no evidence for bony union. Nonunited ulnar styloid fracture is again identified. SOFT TISSUES: No soft tissue swelling. No foreign body. OTHER: No other significant finding. IMPRESSION: No significant interval change. No acute findings. Other findings as noted above. TECHNICAL DOCUMENTATION: JOB ID: [id number] [employer]- All Rights Reserved
[2016-11-30 20:04] VITALS: BP 123/81
== END 2016-11-30 20:05 | disposition home or self-care (01) ==
LOC: ER 18:30
DX: M25.532 Pain in left wrist (principal); Z98.890 Other specified postprocedural states; R06.2 Wheezing; R05 Cough
CPT/HCPCS: 99283

== ENCOUNTER 2017-08-17 18:36 | Emergency (ER) | payer OTHER ==
--- NOTE | 2017-08-17 19:39 | ER Document Report ---
ED Medical Screen (RME) - General Chief Complaint: Weakness Stated Complaint: WEAKNESS/NUMBNESS Time Seen by Provider: 08/17/17 19:32 Notes: The patient is a 32-year-old female, past medical history hypothyroidism, presents with 4 hours of feeling her hands and wrist began to cramp. She says this happens when her calcium is low. Looking through prior visits, her total calcium has remained normal. Her ionized calcium is slightly low from prior visits. SHe has parathyroids. PE: NAD. RRR. No carpopedal spasming noted. I have greeted and performed a rapid initial assessment of this patient. A comprehensive ED assessment and evaluation of the patient, analysis of test results and completion of the medical decision making process will be conducted by additional ED providers. TRAVEL OUTSIDE OF THE [place] IN LAST 30 DAYS: No - Related Data Allergies/Adverse Reactions: morphine [Morphine] Allergy (Mild, Verified 08/17/17 18:37) ITCHY, TURNS RED Opioids - Morphine Analogues Allergy (Verified 08/17/17 18:37) Hives Past Medical History Pulmonary Medical History: Reports: Hx Asthma, Hx COPD Endocrine Medical History: Reports: Hx Hypothyroidism Renal/ Medical History: Denies: Hx Peritoneal Dialysis Psychiatric Medical History: Reports: Hx Anxiety, Hx Depression Past Surgical History: Reports: Hx Orthopedic Surgery - L arm 2016, Hx Tubal Ligation - Immunizations Immunizations up to date: Yes Hx Diphtheria, Pertussis, Tetanus Vaccination: Yes Physical Exam - Vital signs Vitals: Pulse Resp BP Pulse Ox 73 20 127/89 H 99 08/17/17 18:40 08/17/17 18:40 08/17/17 18:40 08/17/17 18:40 Course - Vital Signs Vital signs: Temp Pulse Resp BP Pulse Ox 73 20 127/89 H 99 08/17/17 18:40 08/17/17 18:40 08/17/17 18:40 08/17/17 18:40 Doctor's Discharge - Discharge Referrals: ELIZABET ELAINE MD [Primary Care Provider] - Follow up as needed
--- NOTE | 2017-08-17 20:23 | ER Document Report ---
ED General - General Chief Complaint: Weakness Stated Complaint: WEAKNESS/NUMBNESS Time Seen by Provider: 08/17/17 19:32 Mode of Arrival: Ambulatory Information source: Patient Notes: Patient is a 32-year-old female who presents with chief complaint of tingling in her bilateral arms that started at 3:57 PM. Patient also reports that she has been feeling 'fuzzy headed". Patient reports that she has a history of hypothyroidism and has had issues with her calcium dropping in the past. Patient reports that the symptoms are consistent with previous times when she has had hypocalcemia. Patient has no other complaints at this time. Patient is alert, oriented and appears very well. TRAVEL OUTSIDE OF THE [place] IN LAST 30 DAYS: No - Related Data Allergies/Adverse Reactions: morphine [Morphine] Allergy (Mild, Verified 08/17/17 18:37) ITCHY, TURNS RED Opioids - Morphine Analogues Allergy (Verified 08/17/17 18:37) Hives Past Medical History - General Information source: Patient - Social History Smoking Status: Never Smoker Frequency of alcohol use: None Drug Abuse: None Lives with: Family Family History: Reviewed & Not Pertinent Patient has suicidal ideation: No Patient has homicidal ideation: No Pulmonary Medical History: Reports: Hx Asthma, Hx COPD Endocrine Medical History: Reports: Hx Hypothyroidism Renal/ Medical History: Denies: Hx Peritoneal Dialysis Psychiatric Medical History: Reports: Hx Anxiety, Hx Depression Past Surgical History: Reports: Hx Orthopedic Surgery - L arm 2016, Hx Tubal Ligation - Immunizations Immunizations up to date: Yes Hx Diphtheria, Pertussis, Tetanus Vaccination: Yes Review of Systems - Review of Systems Constitutional: See HPI EENT: No symptoms reported Cardiovascular: No symptoms reported Respiratory: No symptoms reported Gastrointestinal: No symptoms reported Genitourinary: No symptoms reported Female Genitourinary: No symptoms reported Musculoskeletal: No symptoms reported Skin: No symptoms reported Hematologic/Lymphatic: No symptoms reported Neurological/Psychological: No symptoms reported Physical Exam - Vital signs Vitals: Pulse Resp BP Pulse Ox 73 20 127/89 H 99 08/17/17 18:40 08/17/17 18:40 08/17/17 18:40 08/17/17 18:40 - Notes Notes: PHYSICAL EXAMINATION: GENERAL: Well-appearing, well-nourished and in no acute distress. HEAD: Atraumatic, normocephalic. EYES: Pupils equal round and reactive to light, extraocular movements intact, conjunctiva are normal. ENT: Nares patent, oropharynx clear without exudates. Moist mucous membranes. NECK: Normal range of motion, supple without lymphadenopathy LUNGS: Breath sounds clear to auscultation bilaterally and equal. No wheezes rales or rhonchi. HEART: Regular rate and rhythm without murmurs ABDOMEN: Soft, nontender, nondistended abdomen. No guarding, no rebound. No masses appreciated. Female : deferred Musculoskeletal: Normal range of motion, no pitting or edema. No cyanosis. NEUROLOGICAL: Cranial nerves grossly intact. Normal speech, normal gait. Normal sensory, motor exams PSYCH: Normal mood, normal affect. SKIN: Warm, Dry, normal turgor, no rashes or lesions noted. Course - Re-evaluation Re-evalutation: Otherwise healthy, well-appearing 32-year-old female presents with request to have her calcium checked. Patient reports that she had some numbness and tingling to her bilateral arms that started between 3:57 PM today and also filled "fuzzy headed" patient reports that she had this happen one other time several years ago and her calcium was low. Patient denies being on any calcium supplements daily. Patient does report a history of hypothyroidism although she has not had her thyroid surgically removed. All laboratory results are normal, serum calcium as well as ionized calcium are within normal limits. Discussed test results with patient who is out relieved very happy with her normal lab results and is ready for discharge. Patient's vital signs are stable. 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 - Vital Signs Vital signs: Temp Pulse Resp BP Pulse Ox 73 18 119/91 H 98 08/17/17 18:40 08/17/17 22:01 08/17/17 22:00 08/17/17 22:01 - Laboratory Result Diagrams: 08/17/17 20:50 08/17/17 20:50 Laboratory results interpreted by me: 08/17/17 08/17/17 20:50 20:50 AST 40 H Urine Blood SMALL H Discharge - Discharge Clinical Impression: Weakness, Normal exam Condition: Stable Disposition: HOME, SELF-CARE Additional Instructions: Your workup today was completely normal. Both your serum calcium as well as your ionized calcium were within normal limits. 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 I would recommend seeing them in the next 2-3 days or sooner if you continue to experience the symptoms. We are happy to reevaluate her in the emergency department if you develop any worsening symptoms such as chest pain, shortness of breath, you pass out or any other symptom that is concerning to. Referrals: ELIZABET ELAINE MD [NO LOCAL MD] - Follow up as needed
[2017-08-17 21:17] LABS: ABSOLUTE BASOPHILS # (AUTO) 0.1 10^3/uL (0.0-0.2); ABSOLUTE EOSINOPHILS # (AUTO) 0.1 10^3/uL (0.0-0.6); ABSOLUTE LYMPHOCYTES (AUTO) 2.1 10^3/uL (0.5-4.7); ABSOLUTE MONOCYTES (AUTO) 0.7 10^3/uL (0.1-1.4); BASOPHILS % (AUTO) 0.9 % (0-2); EOSINOPHILS % (AUTO) 0.8 % (0-6); HEMATOCRIT 39.7 % (36.0-47.0); HEMOGLOBIN 13.6 g/dL (12.0-15.5); LYMPHOCYTES % (AUTO) 26.8 % (13-45); MEAN CORPUSCULAR HEMOGLOBIN 29.8 pg (27.0-33.4); MEAN CORPUSCULAR HGB CONC 34.3 g/dL (32.0-36.0); MEAN CORPUSCULAR VOLUME 87 fl (80-97); MONOCYTES % (AUTO) 8.5 % (3-13); PLATELET COUNT 240 10^3/uL (150-450); RED BLOOD COUNT 4.56 10^6/uL (3.72-5.28); RED CELL DISTRIBUTION WIDTH 13.6 % (11.5-14.0); TOTAL CELLS COUNTED % (AUTO) 100 %
[2017-08-17 21:30] LABS: APPEARANCE,URINE CLEAR; BILIRUBIN,URINE NEGATIVE (NEGATIVE); COLOR,URINE STRAW; GLUCOSE, URINE NEGATIVE (NEGATIVE); KETONES,URINE NEGATIVE (NEGATIVE); LEUKOCYTE ESTERASE,URINE NEGATIVE (NEGATIVE); NITRITE,URINE NEGATIVE (NEGATIVE); PROTEIN,URINE NEGATIVE (NEGATIVE); URINE SPECIFIC GRAVITY 1.008; UROBILINOGEN,URINE NEGATIVE mg/dL (<2.0)
[2017-08-17 21:32] LABS: ALANINE AMINOTRANSFERASE 18 U/L (9-52); ALBUMIN 4.5 g/dL (3.5-5.0); ALKALINE PHOSPHATASE 62 U/L (38-126); ANION GAP 11 (5-19); ASPARTATE AMINO TRANSFERASE 40 U/L (14-36); BILIRUBIN,DIRECT 0.3 mg/dL (0.0-0.4); BILIRUBIN,TOTAL 0.3 mg/dL (0.2-1.3); BLOOD UREA NITROGEN 14 mg/dL (7-20); CALCIUM 9.2 mg/dL (8.4-10.2); CARBON DIOXIDE 26 mmol/L (22-30); CHLORIDE 106 mmol/L (98-107); GLUCOSE 79 mg/dL (75-110); POTASSIUM 3.9 mmol/L (3.6-5.0); SODIUM 142.9 mmol/L (137-145); TOTAL PROTEIN 7.7 g/dL (6.3-8.2)
--- NOTE | 2017-08-17 21:42 | EKG REPORT ---
SEVERITY:- NORMAL ECG - SINUS RHYTHM : Confirmed by: Brittany Diaz MD 17-Aug-2017 21:41:14
[2017-08-17 21:47] LABS: FREE T3 3.63 pg/mL (2.77-5.27); FREE T4 (FREE THYROXINE) 0.96 ng/dL (0.78-2.19)
[2017-08-17 22:01] LABS: THYROID STIMULATING HORMONE 3.98 uIU/mL (0.47-4.68)
[2017-08-17 22:31] VITALS: BP 119/91
== END 2017-08-17 22:30 | disposition home or self-care (01) ==
LOC: ER 18:36
DX: R53.1 Weakness (principal); J44.9 Chronic obstructive pulmonary disease, unspecified; Z88.6 Allergy status to analgesic agent; Z98.51 Tubal ligation status
CPT/HCPCS: 36415; 80053; 81001; 81025; 82330; 84439; 84443; 84481; 85025; 93005; 93010; 99285

== ENCOUNTER 2017-11-08 09:41 | Day surgery (SDC) | payer OTHER ==
--- NOTE | 2017-11-04 10:55 | RADIOLOGY REPORT (SQ) ---
EXAM DESCRIPTION: CHEST PA/LATERAL COMPLETED DATE/TIME: 11/04/2017 10:46 am REASON FOR STUDY: PRE-OP COMPARISON: 05/25/2016. EXAM PARAMETERS: NUMBER OF VIEWS: two views TECHNIQUE: Digital Frontal and Lateral radiographic views of the chest acquired. RADIATION DOSE: NA LIMITATIONS: none FINDINGS: LUNGS AND PLEURA: No opacities, masses or pneumothorax. No pleural effusion. MEDIASTINUM AND HILAR STRUCTURES: No masses or contour abnormalities. HEART AND VASCULAR STRUCTURES: Heart normal size. No evidence for failure. BONES: No acute findings. HARDWARE: None in the chest. OTHER: No other significant finding. IMPRESSION: NO SIGNIFICANT RADIOGRAPHIC FINDING IN THE CHEST. TECHNICAL DOCUMENTATION: JOB ID: [id number] [employer]- All Rights Reserved Reading location - IP/workstation name: [email or web address]
[2017-11-04 11:11] LABS: APPEARANCE,URINE CLEAR; BILIRUBIN,URINE NEGATIVE (NEGATIVE); COLOR,URINE STRAW; GLUCOSE, URINE NEGATIVE (NEGATIVE); KETONES,URINE NEGATIVE (NEGATIVE); LEUKOCYTE ESTERASE,URINE NEGATIVE (NEGATIVE); NITRITE,URINE NEGATIVE (NEGATIVE); PROTEIN,URINE NEGATIVE (NEGATIVE); UROBILINOGEN,URINE NEGATIVE mg/dL (<2.0)
[2017-11-04 11:25] LABS: HEMATOCRIT 41.7 % (36.0-47.0); HEMOGLOBIN 14.3 g/dL (12.0-15.5); MEAN CORPUSCULAR HEMOGLOBIN 30.5 pg (27.0-33.4); MEAN CORPUSCULAR HGB CONC 34.4 g/dL (32.0-36.0); MEAN CORPUSCULAR VOLUME 89 fl (80-97); PLATELET COUNT 213 10^3/uL (150-450); RED CELL DISTRIBUTION WIDTH 13.2 % (11.5-14.0); WHITE BLOOD COUNT 5.8 10^3/uL (4.0-10.5)
[2017-11-04 11:56] LABS: ANION GAP 11 (5-19); BLOOD UREA NITROGEN 16 mg/dL (7-20); CARBON DIOXIDE 28 mmol/L (22-30); CHLORIDE 103 mmol/L (98-107); GLUCOSE 102 mg/dL (75-110); SODIUM 142.3 mmol/L (137-145)
--- NOTE | 2017-11-04 20:55 | EKG REPORT ---
SEVERITY:- NORMAL ECG - SINUS RHYTHM : Confirmed by: Brittany Diaz MD 04-Nov-2017 20:54:05
[~2017-11-08 09:41] MED LIST changes: +ACETAMINOPHEN 1,000 MG/100 ML RTUPB IV ONE; +DEXAMETHASONE SOD PHOSPHATE INJ 4 MG/1 ML VIAL ONE; +FENTANYL CITRATE INJ/PF 100 MCG/2 ML AMPUL ONE; +LACTATED RINGERS 1000 ML IV PRN; +LIDOCAINE 0.5% INJ-PF (5 MG/ML) 50 ML SDV SUBCUT PRN; +MIDAZOLAM 2 MG/2 ML INJ ONE; +ONDANSETRON HCL INJ/PF 4 MG/2 ML SDV ONE; +PROPOFOL INJ 200 MG/20 ML VIAL IV ONE
[2017-11-08] MEDS ORDERED: CEFAZOLIN 2 GM/D5W RTU 2 GM/50 ML RTUPB IV ONE (10:02)
[2017-11-08] MEDS ORDERED: DIPHENHYDRAMINE HCL 50 MG/ML VIAL IV PRN (12:38)
[2017-11-08] MEDS ORDERED: PROMETHAZINE HCL INJ 25 MG/1 ML VIAL IV PRN ×2 (12:38)
[2017-11-08] MEDS ORDERED: ONDANSETRON HCL INJ/PF 4 MG/2 ML SDV IV PRN ×2 (12:38→14:35)
[2017-11-08] MEDS ORDERED: MEPERIDINE HCL/PF INJ 25 MG/1 ML DISP.SYRIN IV PRN (12:38)
[2017-11-08] MEDS ORDERED: FENTANYL CITRATE INJ/PF 100 MCG/2 ML AMPUL IV PRN ×4 (12:38→14:35)
[2017-11-08] MEDS ORDERED: BUPIVACAINE HCL 0.5 % INJ/PF 30 ML SDV ONE (12:58)
[2017-11-08] MEDS ORDERED: GLYCOPYRROLATE 1 MG/5 ML SYRINGE ONE (13:54)
[2017-11-08] MEDS ORDERED: SUCCINYLCHOLINE CHLORIDE INJ 200 MG/10 ML VIAL ONE (13:54)
[2017-11-08] MEDS ORDERED: LIDOCAINE 2%/EPINEPHRINE INJ 20 ML VIAL ONE (14:16)
[2017-11-08] MEDS ORDERED: ROPIVACAINE HCL 0.5% INJ/PF (5 MG/1 ML) 30 ML SDV ONE ×2 (14:16→14:17)
[2017-11-08] MEDS ORDERED: LIDOCAINE 2% INJ (20 MG/ML) 20 ML MDV ONE (14:16)
[2017-11-08] MEDS ORDERED: OXYCODONE-ACETAMINOPHEN 5-325 MG TABLET PO PRN (14:35)
--- NOTE | 2017-11-08 14:35 | Operative Report ---
Operative Report DATE OF SURGERY: 11/08/17 PREOPERATIVE DIAGNOSIS: Left distal radius nonunion POSTOPERATIVE DIAGNOSIS: Same OPERATION: Repair of distal radius nonunion with proximal tibial autograft. Second and third dorsal compartment extensor tenolysis SURGEON: OLIVIA MARSHALL ANESTHESIA: GA COMPLICATIONS: None ESTIMATED BLOOD LOSS: Minimal PROCEDURE: Indication for above procedure: 32-year-old female with unfortunate history of comminuted left distal radius fracture. Patient underwent distraction bridge plating and ultimately removal. Patient continued to complain of discomfort in her wrist secondary to deformity and underwent osteotomy. After that surgical procedure she had been doing well until the plate failed necessitating repeat operative intervention. Patient underwent revision osteotomy left distal radius which she did well with unfortunately she continued to have persistent evidence of defect and thus given patient's history and concern of hardware failure decision was made to proceed with repair of nonunion utilizing proximal tibial autograft. Procedure In Detail: Patient was seen and evaluated in the preoperative holding area. The LEFT upper extremity was initialized and marked. Patient received 2g of Ancef IV for bacterial prophylaxis. Patient was taken back to the operative room where transferred to the operative table and placed under general anesthesia. Once they were adequately anesthetized a nonsterile tourniquet was placed on the upper extremity. A surgical team debriefing was performed ensuring all instrumentation was available, the surgical procedure was discussed with possible concerns reviewed. The upper extremity was prepped with chlorhexidine and alcohol and draped in a sterile fashion. A timeout was done identifying correct patient, procedure and extremity everyone in attendance agree with this and verbalized no concerns. The extremity was exsanguinated the tourniquet was inflated to 250 mmHg. Longitudinal skin incision was made dorsally through previous skin incision. Blunt dissection was performed. Branch of the superficial radial nerve were retracted with the skin flap. The interval between the second and third dorsal compartments was then utilized exposing the osteotomy site dorsally. There was evidence of bridging bone along the ulnar aspect however significant scar tissue was evident along the radial portion. With a rongeur and curettes the nonunion site was debrided removing all intervening granulation tissue. The canal proximally and distally was then curetted exposing normal cancellus bone. There was no evidence of hardware loosening or malalignment on direct visualization or with C arm fluoroscopy. Tourniquet was deflated and attention then turned to proximal tibial bone graft. Extremity was elevated and tourniquet inflated to 300 mmHg. Skin incision was made over Gerdy's tubercle any peripheral veins were coagulated with bipolar cautery. The fascia of the iliotibial band was opened and a small cortical window was made along the lateral aspect of the tibia and booked open leaving the cancellus fragment for later closure. The cancellus bone was then retrieved and placed on the back table until a sufficient amount was obtained. The wound was then copiously irrigated with normal saline. Proximal tibia was packed with cancellus allograft chips. The cortical window was then placed back into position and fascia/periosteum was closed with interrupted 2-0 Vicryl suture. 10 cc of 0.5% Marcaine without epinephrine was injected for postoperative pain control. Skin was closed with subcuticular 4-0 Monocryl reinforced with Dermabond and Steri-Strips. Tourniquet deflated. A small bur with irrigation was then used to prepare the proximal and distal osteotomy sites once again until normal bleeding cancellus bone was exposed. Once adequately debrided the wound was copiously irrigated with normal saline. The defect was then securely packed with the proximal tibial autograft. C-arm fluoroscopy was obtained confirming maintained alignment without abnormality. The subcutaneous tissues were closed with interrupted 4-0 Monocryl suture. Skin was closed with interrupted horizontal mattress 3-0 nylon suture. 10 cc of 0.5% Marcaine without epinephrine was injected for postoperative pain control. Wound was dressed with Xeroform 4 x 4's and patient was placed in a dorsal blocking splint. Sponge counts, instrument counts, needle counts counts were correct. Patient was then awoken from anesthesia. Transferred from the operating room table to the operating room stretcher. There was no intraoperative complications patient tolerated procedure well stable to PACU. Postoperative plan: Patient will continue her Exos postoperatively along with bone stimulator until there is evidence of fracture healing. Patient will follow-up in 2 weeks for wound check.
[2017-11-08] MEDS: FENTANYL CITRATE INJ/PF 100 MCG/2 ML AMPUL ONE ×2 (14:40→14:45)
[2017-11-08] MEDS ORDERED: OXYCODONE-ACETAMINOPHEN 5-325 MG TABLET ONE (15:51)
[2017-11-08] MEDS ORDERED: DIPHENHYDRAMINE HCL 25 MG CAPSULE ONE (15:52)
[2017-11-08] MEDS ORDERED: DIPHENHYDRAMINE HCL 25 MG CAPSULE PO PRN (16:15)
--- NOTE | 2017-11-08 17:09 | RADIOLOGY REPORT (SQ) ---
EXAM DESCRIPTION: NO CHG FLUORO; WRIST LEFT 2 VIEWS COMPLETED DATE/TIME: 11/08/2017 4:32 pm REASON FOR STUDY: LEFT WRIST REPAIR NONUNION S52.532K COLLES' FRACTURE OF LEFT RADIUS, SUBS FOR OLIVIA S FX W COMPARISON: Plain radiographs 11/30/2016 FLUOROSCOPY TIME: 14 seconds 24 images saved to PACS. TECHNIQUE: Intra-operative images acquired during surgical procedure to evaluate progress. NUMBER OF IMAGES: 24 LIMITATIONS: None FINDINGS: Bone grafting of a nonunion fracture of the distal radius. Stable hardware. IMPRESSION: IMAGE(S) OBTAINED DURING PROCEDURE. COMMENT: Quality ID 145: Final reports for procedures using fluoroscopy that document radiation exp osure indices, or exposure time and number of fluorographic images (if radiation exposure indices are not available) Please consult full operative report of the attending physician for description of the procedure. TECHNICAL DOCUMENTATION: JOB ID: [id number] [employer]- All Rights Reserved Reading location - IP/workstation name: [email or web address]
--- NOTE | 2017-11-08 17:09 | RADIOLOGY REPORT (SQ) ---
EXAM DESCRIPTION: NO CHG FLUORO; WRIST LEFT 2 VIEWS COMPLETED DATE/TIME: 11/08/2017 4:32 pm REASON FOR STUDY: LEFT WRIST REPAIR NONUNION S52.532K COLLES' FRACTURE OF LEFT RADIUS, SUBS FOR OLIVIA S FX W COMPARISON: Plain radiographs 11/30/2016 FLUOROSCOPY TIME: 14 seconds 24 images saved to PACS. TECHNIQUE: Intra-operative images acquired during surgical procedure to evaluate progress. NUMBER OF IMAGES: 24 LIMITATIONS: None FINDINGS: Bone grafting of a nonunion fracture of the distal radius. Stable hardware. IMPRESSION: IMAGE(S) OBTAINED DURING PROCEDURE. COMMENT: Quality ID 145: Final reports for procedures using fluoroscopy that document radiation exp osure indices, or exposure time and number of fluorographic images (if radiation exposure indices are not available) Please consult full operative report of the attending physician for description of the procedure. TECHNICAL DOCUMENTATION: JOB ID: [id number] [employer]- All Rights Reserved Reading location - IP/workstation name: [email or web address]
[2017-11-08 17:22] VITALS: BP 132/87
== END 2017-11-08 17:05 | disposition home or self-care (01) ==
LOC: OROUT 09:41
PROVIDERS: ATTEND Orthopaedic Surgery
DX: S52.532K Colles' fracture of left radius, subsequent encounter for closed fracture with nonunion (principal); S69.82XD Other specified injuries of left wrist, hand and finger(s), subsequent encounter; X58.XXXD Exposure to other specified factors, subsequent encounter; M24.632 Ankylosis, left wrist; M25.532 Pain in left wrist; E03.9 Hypothyroidism, unspecified; Z79.899 Other long term (current) drug therapy; Z01.818 Encounter for other preprocedural examination; Z88.5 Allergy status to narcotic agent
CPT/HCPCS: 93005; 36415; 85027; 81025; 80048; 81001; 71046; 73100; 93010; 25295; 25405; J2795; J2250; J3490 ×4; J1100; J3010; J0330; J2405; J2704; J0690; J0131; 01830

== ENCOUNTER 2018-02-20 18:14 | Emergency (ER) | payer OTHER, MEDICARE ==
--- NOTE | 2018-02-20 18:50 | RADIOLOGY REPORT (SQ) ---
EXAM DESCRIPTION: ANKLE RIGHT COMPLETE COMPLETED DATE/TIME: 02/20/2018 6:40 pm REASON FOR STUDY: Pain in R ankle after a "pop". Hx old FX COMPARISON: None. NUMBER OF VIEWS: Three views. TECHNIQUE: AP, lateral, and oblique radiographic images acquired of the right ankle. LIMITATIONS: None. FINDINGS: MINERALIZATION: Normal. BONES: No acute fracture or dislocation. No worrisome bone lesions. JOINTS: No effusions. SOFT TISSUES: No soft tissue swelling. No foreign body. OTHER: No other significant finding. IMPRESSION: NEGATIVE STUDY OF THE RIGHT ANKLE. NO RADIOGRAPHIC EVIDENCE OF ACUTE INJURY. TECHNICAL DOCUMENTATION: JOB ID: [id number] [employer]- All Rights Reserved Reading location - IP/workstation name: [email or web address]
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
[2018-02-20 21:46] VITALS: BP 128/72
== END 2018-02-20 21:46 | disposition home or self-care (01) ==
LOC: ER 18:14
DX: S99.911A Unspecified injury of right ankle, initial encounter (principal); M25.571 Pain in right ankle and joints of right foot; X58.XXXA Exposure to other specified factors, initial encounter; Z88.6 Allergy status to analgesic agent
CPT/HCPCS: 99283

== ENCOUNTER 2020-01-02 18:22 | Emergency (ER) | payer OTHER, MEDICARE ==
[2020-01-02 18:30] VITALS: BP 144/106
--- NOTE | 2020-01-02 18:59 | ER Document Report ---
ED Extremity Problem, Upper - General Chief Complaint: Arm Injury Stated Complaint: FALL/ARM INJURY Time Seen by Provider: 01/02/20 18:47 Primary Care Provider: [facility] [Primary Care Provider] - Follow up as needed Mode of Arrival: Ambulatory Information source: Patient Notes: Patient is a 34-year-old female comes emergency room with complaint of left forearm and wrist pain. Patient states she was standing on a pale and lost her balance falling down. Patient had a total of 7 surgeries on her wrist in the past and tried to avoid reaching out with the wrist and landed on her elbow. Patient has an abrasion on the elbow but states the pain is at the wrist area. Patient had a fusion of the wrist done and has hardware in place. Patient's tenderness is at the wrist area itself. She denies any other injury she did not hit her head had no loss of consciousness. Besides a small abrasion on her elbow there is no other outward signs of any swelling or injuries. Patient states she is up-to-date on her tetanus shot TRAVEL OUTSIDE OF THE [place] IN LAST 30 DAYS: No - HPI Patient complains to provider of: Injury, Pain, Left, Wrist. No: Swelling Onset: Just prior to arrival Recent injury: Yes Where: Home Quality of pain: Throbbing Severity of pain: Moderate Pain Level: 3 Context: Blow Arm and Shoulder (Left): 1 - Area of discomfort Associated symptoms: None Exacerbated by: Movement Relieved by: Nothing Similar symptoms previously: Yes Recently seen / treated by doctor: No - Related Data Allergies/Adverse Reactions: morphine [Morphine] Allergy (Mild, Verified 01/02/20 19:03) ITCHY, TURNS RED Opioids - Morphine Analogues Allergy (Verified 01/02/20 19:03) Hives Past Medical History - General Information source: Patient - Social History Smoking Status: Never Smoker Cigarette use (# per day): No Chew tobacco use (# tins/day): No Smoking Education Provided: No Frequency of alcohol use: None Drug Abuse: None Lives with: Family Family History: Reviewed & Not Pertinent - Past Medical History Cardiac Medical History: Denies: Hx Coronary Artery Disease, Hx Heart Attack, Hx Hypertension Pulmonary Medical History: Denies: Hx Asthma, Hx Bronchitis, Hx COPD, Hx Pneumonia Neurological Medical History: Denies: Hx Cerebrovascular Accident, Hx Seizures Endocrine Medical History: Reports: Hx Hypothyroidism Renal/ Medical History: Denies: Hx Peritoneal Dialysis Musculoskeletal Medical History: Denies Hx Arthritis Psychiatric Medical History: Reports: Hx Anxiety, Hx Depression Past Surgical History: Reports: Hx Orthopedic Surgery - L arm 2016, Hx Tubal Ligation - Immunizations Immunizations up to date: Yes Hx Diphtheria, Pertussis, Tetanus Vaccination: Yes Review of Systems - Review of Systems Constitutional: No symptoms reported EENT: No symptoms reported Cardiovascular: No symptoms reported Respiratory: No symptoms reported Gastrointestinal: No symptoms reported Genitourinary: No symptoms reported Female Genitourinary: No symptoms reported Musculoskeletal: See HPI, Joint pain. denies: Joint swelling Skin: See HPI, Other Hematologic/Lymphatic: No symptoms reported Neurological/Psychological: No symptoms reported -: Yes All other systems reviewed and negative Physical Exam - Vital signs Vitals: Temp Pulse Resp BP Pulse Ox 98.2 F 131 H 18 144/106 H 92 01/02/20 18:29 01/02/20 18:29 01/02/20 18:29 01/02/20 18:29 01/02/20 18:29 Interpretation: Hypertensive, Tachycardic - Notes Notes: PHYSICAL EXAMINATION: GENERAL: Patient is a well-nourished well-developed 34-year-old female no apparent distress on physical exam. HEAD: Atraumatic, normocephalic. EYES: Pupils equal round and reactive to light, extraocular movements intact, conjunctiva are normal. LUNGS: Breath sounds clear to auscultation bilaterally and equal. No wheezes rales or rhonchi. HEART: Tachycardic and rhythm without murmurs Female : deferred Musculoskeletal: Examination patient's area concern is her left elbow to wrist. Examination shows patient has a small abrasion on her elbow. No bleeding noted at this time. Patient has full range of motion at the elbow without any discomfort or pain to palpation and has good strength against resistance at the elbow. Examination patient's forearm to wrist does show that at the distal portion of the forearm and wrist area she has multiple surgical scars that are well-healed with no sign of any type of infection. There is no swelling noted at this time. Patient has good pulses on the ulnar and radial side. She has good cap refill in the nailbeds of the fingers of that hand. Patient has no flexion extension since she has had a fixation of the wrist due to plating. There is no swelling that can be palpable at this time. There is moderate tenderness noted on the dorsal aspect of the left forearm at the wrist area and the distal ulna and radius. NEUROLOGICAL: Normal speech, normal gait. Normal sensory, motor exams PSYCH: Normal mood, normal affect. SKIN: As stated patient has a small abrasion on her left elbow but there is no bleeding noted. Course - Re-evaluation Re-evalutation: 01/02/20 21:13 I have looked patient up on [facility] aware continue multiple states as well . Patient does not have a drug-seeking type behavior. She is prescribed Lunesta which does pop up as a sedative letter that has gotten you know of the narcotic medications. This given her history of multiple surgeries on her arm I feel warrants since she has a new fracture according to the x-ray of nondisplaced ulnar fracture of the fixation plate but there is no evidence of loosening or subsidence. Given this findings I will place her in a splint and she will follow-up with her orthopedic doctor. 01/02/20 23:08 I also recheck patient's vital signs prior to leaving especially her heart rate and it was down to 100 bpm. - Vital Signs Vital signs: Temp Pulse Resp BP Pulse Ox 98.2 F 82 14 144/106 H 99 01/02/20 18:29 01/02/20 21:20 01/02/20 21:20 01/02/20 18:29 01/02/20 21:20 Procedures - Immobilization Left Arm Time completed: 21:20 Pre-Proc Neuro Vasc Exam: Normal Immobilizer type: Cock-up Performed by: PCT Post-Proc Neuro Vasc Exam: Normal Alignment checked and good: Yes Discharge - Discharge Clinical Impression: Abrasion Wrist fracture Qualifiers: Encounter type: initial encounter Fracture type: closed Laterality: left Qualified Code(s): S62.102A - Fracture of unspecified carpal bone, left wrist, initial encounter for closed fracture Condition: Stable Disposition: HOME, SELF-CARE Additional Instructions: You have as we discussed a new nondisplaced hardware fracture of the fixation plate. I am not sure exactly what that means it may cause you some pain and discomfort but since you are fixated and is nondisplaced I am not too worried about it being a necessity to have surgery for. However since you have a orthopedic doctor I we will put you in a immobilizer splint and you contact them Tuesday for follow-up. In the meantime I will write you for 6 Percocet fives to be through the worst part of the next couple days continue take ibuprofen and Tylenol as needed. Even though this is a fixation plate fracture you may try some ice to help reduce any swelling that may occur. If you have any concerns or problems you can return to ER for evaluation. Prescriptions: Oxycodone HCl/Acetaminophen [Percocet 5-325 mg Tablet] 1 - 2 tab PO Q6 PRN #12 tablet PRN Reason: Referrals: [facility] [Primary Care [facility]] - Follow up as needed
[2020-01-02] MEDS ORDERED: IBUPROFEN 600 MG TABLET PO ONE (19:31)
--- NOTE | 2020-01-02 20:03 | RADIOLOGY REPORT (SQ) ---
EXAM DESCRIPTION: FOREARM LEFT; WRIST LEFT 3 VIEWS; ELBOW LEFT OVER 2 VIEWS COMPLETED DATE/TIME: 01/02/2020 6:30 pm REASON FOR STUDY: fall; fall history of multiple surgeries with fixation. COMPARISON: Left wrist radiograph, 11/08/2017. . NUMBER OF VIEWS: 9 views TECHNIQUE: AP, lateral, internal and external oblique views of the left elbow, AP, lateral and obliq ue views of the left wrist, and AP and lateral radiographic images acquired of the left forearm, incl uding elbow and wrist in at least one projection. LIMITATIONS: None. FINDINGS: MINERALIZATION: Normal. BONES: Plate and screw fixation traversing a nonunited fracture of the distal radius. Nonunited frac ture of the ulnar styloid process. 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 Findings are unchanged from prior exams. No evidence of hardware fracture, there is a tiny nondisplaced fract ure of the radial aspect of the hardware. No evidence of loosening or subsidence. No acute wrist fr acture. The radius and ulna are intact. No elbow joint effusion. Normal elbow joint alignment. SOFT TISSUES: No obvious swelling or foreign body. OTHER: No other significant finding. IMPRESSION: 1. Postoperative changes at the distal left radius with nonunited fractures of the radius and ulna un changed from prior exam. There is a new nondisplaced hardware fracture of the fixation plate. No ev idence of loosening or subsidence. 2. No acute fracture or dislocation of the left wrist, forearm or elbow. TECHNICAL DOCUMENTATION: JOB ID: [id number] 2010 [employer]- All Rights Reserved Reading location - IP/workstation name: [email or web address]
== END 2020-01-02 21:54 | disposition home or self-care (01) ==
LOC: ER 18:22
DX: S62.102A Fracture of unspecified carpal bone, left wrist, initial encounter for closed fracture (principal); S52.602A Unspecified fracture of lower end of left ulna, initial encounter for closed fracture; S50.312A Abrasion of left elbow, initial encounter; M79.632 Pain in left forearm; M25.532 Pain in left wrist; W17.89XA Other fall from one level to another, initial encounter; Y93.89 Activity, other specified; Y92.009 Unspecified place in unspecified non-institutional (private) residence as the place of occurrence of the external cause; Z98.890 Other specified postprocedural states; Z98.1 Arthrodesis status; Z88.6 Allergy status to analgesic agent; Z88.5 Allergy status to narcotic agent; R00.0 Tachycardia, unspecified; Z79.899 Other long term (current) drug therapy
CPT/HCPCS: 99284

== ENCOUNTER → 2020-01-25 | Outpatient (CLI) | payer OTHER ==
--- NOTE | 2020-01-25 13:04 | RADIOLOGY REPORT (SQ) ---
EXAM DESCRIPTION: CT LT UPPER EXTREMITY WITHOUT IMAGES COMPLETED DATE/TIME: 01/25/2020 9:53 am REASON FOR STUDY: S52.532K COLLES' FRACTURE OF LEFT RADIUS, SUBSEQUENT ENCOUNTER FOR CLOSED F S52.53 2K COLLES' FRACTURE OF LEFT RADIUS, SUBS FOR CLOS FX W COMPARISON: 01/02/2020 [facility] radiograph, 07/17/2015 CT TECHNIQUE: Axial imaging performed through the left forearm with reformatted oblique coronal and obl ique sagittal imaging windowed for bone and soft tissues. All CT scanners at this facility use dose modulation, iterative reconstruction, and/or weight based d osing when appropriate to reduce radiation dose to as low as reasonably achievable (ALARA). [facility]: Dose Right [facility]: CareDose [facility]: Dose Right [facility]: Teradose 4D [facility]: [employer] RADIATION DOSE: CT Rad equipment meets quality standard of care and radiation dose reduction techniq ues were employed. CTDIvol: 4.6 mGy. DLP: 111 mGy-cm. mGy. LIMITATIONS: None. FINDINGS: SOFT TISSUES: No soft tissue mass. No subcutaneous gas. No discrete drainable collection . BONY ARCHITECTURE: Again seen is the distal radial fracture with volar plate and screw fixation hardw are. There is persistent fracture line with no definitive osseous bridging about the fracture line, similar to prior radiograph. Dysmorphic distal radius with area of lucency about the volar radial me tadiaphysis, likely posttraumatic. No definitive cortical destruction. Chronic ulnar styloid fractu re, stable. No evidence of new acute bony abnormality. There is degenerative changes at the distal radioulnar joint with joint space loss, subchondral sclerosis and osteophytosis. HARDWARE: Distal radial volar plate and screw fixation hardware without evidence of failure. OTHER: No other significant finding. IMPRESSION: 1. Postsurgical/traumatic changes with distal radial volar plate and screw fixation angelina dware. No evidence of hardware loosening. Previously reported nondisplaced fracture of mid plate is not visualized on this scan, possibly secondary to beam hardening artifact. Hardware alignment is n ormal. 2. 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 3. Chronic ulnar styloid fracture. 4. Degenerative changes about the radiocarpal joint with joint space loss in osteophytosis. TECHNICAL DOCUMENTATION: JOB ID: [id number] Quality ID # [id number]: Final reports with documentation of one or more dose reduction techniques (e.g., Au tomated exposure control, adjustment of the mA and/or kV according to patient size, use of iterative reconstruction technique) 2010 [employer]- All Rights Reserved Reading location - IP/workstation name: [email or web address]
== END ==
LOC: RAD 09:30
PROVIDERS: ATTEND Orthopaedic Surgery
DX: S52.532K Colles' fracture of left radius, subsequent encounter for closed fracture with nonunion (principal); X58.XXXD Exposure to other specified factors, subsequent encounter